=== PATIENT | male | born 2005 | race Caucasian/White ===

== ENCOUNTER 2024-08-28 21:23 | Emergency (ER) | payer SELFPAY ==
[~2024-08-28] VITALS: Ht 172.7 cm; Wt 80.0 kg
[2024-08-28 21:26] VITALS: O2SAT 95
[2024-08-28] MEDS: ONDANSETRON HCL 4MG/2ML INJ IV ONE (23:10)
[2024-08-28 23:40] LABS: BASOPHILS % 0.3 % (0.0-2.0); EOSINOPHILS % 0.3 % (0.0-5.0); HEMATOCRIT. 40.6 % (42.0-52.0); HEMOGLOBIN. 13.5 g/dL (14.0-18.0); MEAN CORPUSCULAR HGB CONC 33.2 g/dL (31.0-37.0); MEAN CORPUSCULAR VOLUME 96.2 fL (80.0-94.0); MONOCYTES % 5.8 % (2.0-8.0); NEUTROPHILS % 65.6 % (40.0-76.0); PLATELET 264 x1000/uL (130-400); RED BLOOD CELL COUNT 4.22 mill/uL (4.7-6.1); RED CELL DISTRIBUTION WIDTH 13.6 % (11.6-14.6); WHITE BLOOD COUNT 6.9 x1000/uL (4.5-11.0)
[2024-08-28 23:47] LABS: CHLORIDE 107 mEq/L (98-107); POTASSIUM 4.1 mEq/L (3.5-5.1); SODIUM 141 mEq/L (136-145)
[2024-08-28 23:48] LABS: CALCIUM 8.4 mg/dL (8.7-10.4); CARBON DIOXIDE 22 mEq/L (21-32)
[2024-08-28 23:53] LABS: CREATININE 0.9 mg/dL (0.6-1.3); ETHANOL BLOOD 274 mg/dL (<10); GLUCOSE 116 mg/dL (70-105); UREA NITROGEN BLOOD 7 mg/dL (9-23)
[2024-08-29 00:18] VITALS: BP 106/66; PULSE 80; RESP 12; TEMP 36.6; O2SAT 100
== END 2024-08-29 00:20 | disposition home or self-care (01) ==
LOC: ER 21:35
DX: T51.0X1A Toxic effect of ethanol, accidental (unintentional), initial encounter (principal); R41.82 Altered mental status, unspecified; Y92.89 Other specified places as the place of occurrence of the external cause
CPT/HCPCS: 80048; 80320; 85025; 36415; 96374; 99283; J2405; G0480